=== PATIENT | female | born 2000 | race African-American/Black ===

== ENCOUNTER 2019-12-15 17:36 | Emergency (ER) | payer BC, SELFPAY ==
[2019-12-15 18:24] VITALS: BP 144/93; PULSE 92; RESP 16; TEMP 36.7; O2SAT 100
--- NOTE | 2019-12-15 19:10 | ED.ALLEREA ---
HPI - Allergic Reaction General Chief complaint: Allergic Reaction Stated complaint: possible allergic reaction Time Seen by Provider: 12/15/19 18:49 Source: patient Mode of arrival: ambulatory Limitations: no limitations History of Present Illness HPI narrative: This is a 19 year old female that presents to the ER for possible allergic reaction. Reports she drank a shake from [employer] and is unsure if there was maybe some peanuts in the shake. Reports her throat felt tingly. Reports this has now resolved. Denies dyspnea, dysphagia, or rash. Related Data Allergies Allergy/AdvReac Type Severity Reaction Status Date / Time banana Allergy Other Verified 12/15/19 18:29 peanut Allergy Anaphylaxis Verified 12/15/19 18:28 shrimp Allergy Unknown Verified 12/15/19 18:29 Review of Systems Review of Systems: Narrative: CONSTITUTIONAL: Denies fever ENT: Denies dysphagia RESPIRATORY: Denies dyspnea. All systems reviewed & are unremarkable except as noted in HPI and below PMFSH Past Medical History Medical History (Updated 12/15/19 @ 19:23 by Crystal Ivory PA-C) History of bipolar disorder Social History Social History (Updated 12/15/19 @ 19:16 by Crystal Ivory PA-C) Substance use: never Gender identity (if verbalized by the patient): Female Exam Narrative: Exam Narrative: GENERAL: Well-appearing, well-nourished, and in no acute distress. HEAD: Normocephalic, atraumatic. EYES: EOMI. ENT: Mucous membranes moist. Oropharynx without tonsillar hypertrophy exudate or other lesions. No swelling of the lips, tongue or throat noted NECK: Supple. No adenopathy or masses. CHEST: Clear to auscultation. No respiratory distress. No wheezes rales or rhonchi HEART: Regular rate and rhythm. No murmur heard. Normal peripheral pulses. EXTREMITIES: Normal range of motion. No edema. SKIN: Warm, dry, no rash. NEURO: No focal deficits. Alert and oriented x3. PSYCH: Normal mood and affect Course Vital Signs Vital signs: Vital Signs Temperature 98.1 F 12/15/19 18:24 Pulse Rate 92 12/15/19 18:24 Respiratory Rate 16 12/15/19 18:24 Blood Pressure 144/93 H 12/15/19 18:24 Pulse Oximetry 100 12/15/19 18:24 Temperature 98.1 F 12/15/19 18:24 Pulse Rate 92 12/15/19 18:24 Respiratory Rate 16 12/15/19 18:24 Blood Pressure 144/93 H 12/15/19 18:24 Pulse Oximetry 100 12/15/19 18:24 MDM - Allergic Reaction MDM Narrative Medical decision making narrative: Patient presented to the emergency department for possible allergic reaction. Reports she had a shake from [employer] and thought maybe there was a peanut product in it. Was reporting tingling in her throat. Her symptoms had resolved prior to me evaluating her. Denied any dysphagia or dyspnea. Heart rate is normal. She is not hypotensive. No mouth or throat swelling noted. Patient watched in the ER for 2 hours without any return of symptoms. Patient is stable and felt appropriate for further outpatient evaluation. She was given warnings to return to the ER Critical Care Time Critical Care Time Critical Care Time: No Discharge Plan Discharge Clinical Impression: Throat irritation Patient Disposition: Home, Self-Care Condition: Stable Instructions: General Allergic Reaction (ED) Additional Instructions: Return to the emergency department if you experience swelling of your mouth or throat, trouble breathing, trouble swallowing, or any other symptoms that are concerning to you Take a Pepcid and Claritin daily. Benadryl as needed for severe itching Follow-up with your primary care doctor Follow-up/Referrals: PHYSICIAN,[facility] SET UP [Primary Care Provider] -
== END 2019-12-15 19:30 | disposition home or self-care (01) ==
PROVIDERS: Emergency Provider Emergency Medicine
DX: R09.89 Other specified symptoms and signs involving the circulatory and respiratory systems (principal); Z91.010 Allergy to peanuts
CPT/HCPCS: 99281